=== PATIENT | female | born 1955 | race Caucasian/White ===

== ENCOUNTER 2024-04-30 08:05 | Inpatient (IN) | payer OTHER, SELFPAY ==
[2024-04-14 13:07] LABS: Hematocrit 37.5 % (37.0-47.0); Hemoglobin 12.7 g/dL (12.0-16.0); Mean Corp Hgb Conc. 33.9 g/dL (33.0-37.0); Mean Corpuscular Hgb 31.3 pg (27.0-31.0); Mean Corpuscular Volume 92.4 fL (81.0-99.0); Mean Platelet Volume 11.5 fL (7.4-10.4); Platelet Count 165 10^3/uL (130-400); Red Blood Cell Count 4.06 10^6/uL (4.20-5.40); Red Cell Dist. Width 13.2 % (11.5-14.5); White Blood Cell Count 9.7 10^3/uL (4.8-10.8)
[2024-04-14 13:44] LABS: ALT (SGPT) 20 U/L (0-35); AST (SGOT) 28 U/L (14-36); Albumin 4.5 g/dl (3.5-5.0); Alkaline Phosphatase 83 U/L (38-126); Blood Urea Nitrogen 26 mg/dl (7-17); Calcium 10.6 mg/dl (8.4-10.2); Carbon Dioxide 25 mmol/L (22-30); Chloride 104 mmol/L (98-107); Glucose 88 mg/dl (70-99); Potassium 4.2 mmol/L (3.5-5.1); Sodium 138 mmol/L (135-145); Total Bilirubin 0.5 mg/dl (0.2-1.3); Total Protein 6.6 g/dl (6.3-8.2); eGFR > 60.00
[2024-04-15 09:23] LABS: Glycohemoglobin (HgbA1c) 4.9 % (4.0-5.6)
--- NOTE | 2024-04-15 14:32 | PTCARENOTE ---
Abn Ecg, Dr. Pisano with Anesthesia notified, no further actions requested.
--- NOTE | 2024-04-17 16:25 | VNURNOTE ---
Called patient to determine post op plans, needs and introduce role of [facility] liaison. No answer, left message.
--- NOTE | 2024-04-18 16:18 | VNURNOTE ---
Second attempt to reach patient, no answer, left message.
--- NOTE | 2024-04-21 08:03 | VNURNOTE ---
Patient is scheduled for an elective R SHUBHAM on 04/30/24. Spoke with patient prior to surgery via telephone.
Introduced role of [facility] liaison. Patient reports that she lives alone in a two story home with 2 steps to enter and 5 steps onto the porch. She currently functions independently. She has a rolling walker, toilet seat, cane and grabber. Her
brother will help her to get home after surgery and her daughter will check on her throughout the day during the first week post op. PCP is Dr Keesha Sellers.
Discussed post surgical plans. Plan is for her to return home at discharge. She told this author she has an appointment with outpatient PT at for 05/02.
Plan: [facility] liaison will remain available if discharge plans change after surgery.
[2024-04-30] VITALS (25 sets, daily range): BP systolic 83–127; BP diastolic 41–71; PULSE 87; O2SAT 98; BMI 37.8
[2024-04-30 08:35] LABS: Glucose - Point of Care 103 mg/dl (70-99)
[2024-04-30] MEDS: TYLENOL 650 MG PO ×4 (08:44→23:14)
[2024-04-30] MEDS: CELEBREX 200 MG PO (08:44)
[2024-04-30] MEDS: NORMOSOL-R 1000 IV ×2 (08:45→12:14)
--- NOTE | 2024-04-30 09:38 | W.DS.TRANS ---
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
-
Discharge Instructions:
Sleep Apnea Risk Intermediate
Discharge Diagnosis/Procedures R SHUBHAM Dr. Torres 04/30/24
Diet Diabetic, Carb Controlled
Activity With Walker
Driving Restrictions No driving
Bathing Restrictions OK to Shower
Other Services PT
Instructions:
Stand-Alone Forms: Total Hip/Knee Replacement D/C
Changes to Home Medications: Yes
Discharge Medications:
DC Medications w/original date entered in Sc[facility]
cholecalciferol (vitamin D3) 125 mcg (5,000 unit) tablet 5,000 unit PO DAILY 02/26/15
liothyronine 5 mcg tablet 5 mcg PO DAILY 02/26/15
docusate sodium 100 mg capsule 100 mg PO BID ##0 03/26/15
irbesartan 150 mg tablet 75 mg (1/2 x 150 mg) PO DAILY ##0 03/26/15
levothyroxine 100 mcg tablet 100 mcg PO DAILY ##0 03/26/15
Azo 1 dose PO DAILY 04/24/24
calcium carbonate (Calcium 600) 600 mg PO DAILY 04/24/24
ibuprofen 200 mg tablet 200 - 400 mg PO Q6H PRN pain 04/24/24
magnesium 200 mg tablet 400 mg PO DAILY 04/24/24
mupirocin 2 % topical ointment 1 applic topical BID 04/24/24
pravastatin 20 mg tablet 40 mg PO DAILY 04/24/24
sitagliptin phosphate 100 mg tablet (Januvia) 50 mg PO DAILY 04/24/24
Saccharomyces boulardii 250 mg capsule (Florastor) 250 mg PO BID #1 cap 04/30/24
acetaminophen 325 mg capsule (Tylenol) 650 mg (2 x 325 mg) PO QID #2 caps 04/30/24
aspirin 325 mg tablet 325 mg PO DAILY blood clot prevention #1 tab 04/30/24
cefadroxil 500 mg capsule 500 mg PO BID infection prevention #14 caps 04/30/24
celecoxib 200 mg capsule 200 mg PO DAILY anti-inflammatory #14 caps 04/30/24
dexamethasone 4 mg tablet 4 mg PO BID inflammation #6 tabs 04/30/24
magnesium hydroxide 400 mg/5 mL oral suspension (Milk of Magnesia) 30 ml PO HS PRN Constipation #1 mL 04/30/24
ondansetron 4 mg disintegrating tablet 4 mg PO Q6H PRN n/v #20 tabs 04/30/24
oxycodone 5 mg tablet 5 mg PO Q6H PRN 1 tab moderate pain, 2 tabs severe pain #30 tabs 04/30/24
sennosides 8.6 mg tablet (Senokot) 17.2 mg (2 x 8.6 mg) PO BID laxative #2 tabs 04/30/24
Home Medication Changes
aspirin 325 mg tablet 325 mg PO DAILY blood clot prevention #1 tab 04/30/24
cefadroxil 500 mg capsule 500 mg PO BID infection prevention #14 caps 04/30/24
celecoxib 200 mg capsule 200 mg PO DAILY anti-inflammatory #14 caps 04/30/24
dexamethasone 4 mg tablet 4 mg PO BID inflammation #6 tabs 04/30/24
ondansetron 4 mg disintegrating tablet 4 mg PO Q6H PRN n/v #20 tabs 04/30/24
oxycodone 5 mg tablet 5 mg PO Q6H PRN 1 tab moderate pain, 2 tabs severe pain #30 tabs 04/30/24
Pending Results: No
[2024-04-30 12:05] LABS: Glucose - Point of Care 98 mg/dl (70-99)
[2024-04-30] MEDS: ROXICODONE 5 MG PO ×2 (14:39→22:23)
--- NOTE | 2024-04-30 15:05 | PTCARENOTE ---
1500: Patient arrived to 2S. Full head to toe assessment completed. B/L LE neurovascular assessment completed. Aquacell on R hip clean dry and intact. IVF running per order. Call epstein within reach and bed in lowest position.
[2024-04-30] MEDS: CYTOMEL 5 MICROGRAM PO (15:50)
[2024-04-30 16:55] LABS: Glucose - Point of Care 151 mg/dl (70-99)
[2024-04-30] MEDS: PRAVACHOL 40 MG PO (18:00)
[2024-04-30] MEDS: ASPIRIN 325 MG PO (18:00)
[2024-04-30] MEDS: NOVOLOG FLEXPEN-MODERATE RESISTANCE 1 UNITS SC (18:00)
[2024-04-30] MEDS: ANCEF 5 IV (18:00)
[2024-04-30] MEDS: DILAUDID 0.5 MG IV (18:04)
[2024-04-30] MEDS: SENOKOT 17.2 MG PO (20:44)
[2024-04-30] MEDS: COLACE 100 MG PO (20:44)
[2024-04-30] MEDS: BACTROBAN 2% OINTMENT 1 APPLIC NASAL (20:44)
[2024-04-30] MEDS: TORADOL 15 MG IV (20:45)
[2024-04-30 21:34] LABS: Glucose - Point of Care 120 mg/dl (70-99)
[2024-04-30] MEDS: NEURONTIN 300 MG PO (22:07)
[2024-04-30] MEDS: PEPCID 20 MG PO (22:07)
[2024-05-01] MEDS: ANCEF 5 IV (01:53)
[2024-05-01 03:42] VITALS: BP 100/43
[2024-05-01] MEDS: TYLENOL 650 MG PO ×2 (03:45→08:35)
[2024-05-01] MEDS: SYNTHROID 100 MCG PO (05:35)
[2024-05-01 07:05] VITALS: BP 98/47
[2024-05-01] MEDS: ROXICODONE 10 MG PO (08:34)
[2024-05-01] MEDS: ASPIRIN 325 MG PO (08:35)
[2024-05-01] MEDS: CYTOMEL 5 MICROGRAM PO (08:36)
[2024-05-01] MEDS: MAGNESIUM OXIDE 500 MG PO (08:36)
[2024-05-01] MEDS: MOBIC 15 MG PO (08:36)
[2024-05-01] MEDS: BACTROBAN 2% OINTMENT 1 APPLIC NASAL (08:36)
[2024-05-01] MEDS: SENOKOT 17.2 MG PO (08:36)
[2024-05-01] MEDS: TORADOL 15 MG IV (08:36)
[2024-05-01] MEDS: COLACE 100 MG PO (08:36)
[2024-05-01] MEDS: NOVOLOG FLEXPEN-MODERATE RESISTANCE SC ×2 (08:40→12:25)
[2024-05-01 08:41] LABS: Glucose - Point of Care 103 mg/dl (70-99)
[2024-05-01 10:05] VITALS: BP 108/52; BP 99/45; PULSE 75
--- NOTE | 2024-05-01 10:29 | CM ---
Met with patient at the bedside; initial assessment and case management consult completed
Pharmacy verified: [facility] @ [address] [facility], [place], [place]
Patient reported that she and her 19 yr old granddaughter live in a multilevel home; 8 steps to enter; 14 steps to 2nd floor bedroom and bath; 2nd floor bath has tub w/shower; grab bars, raised toilet seat, shower chair
Has 1st floor set up; plans to sleep on sofa; has a commode
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
DME: Glucometer, RW, Cane, BP Cuff
NO SNF history; no recent home health services
Brother will transport home
Plan: discharge to home with outpatient therapy
[2024-05-01 11:04] VITALS: BP 94/42
--- NOTE | 2024-05-01 11:17 | W.PN.ORTHO ---
Today's Communication / Plan
-
d/c
Assessment
.
Distal Motor Intact: Yes
Dressing:
Clean, dry and intact.
Plan
.
Surgery / Date: Maria Elena Torres 04/30/24
DVT Prophylaxis: Aspirin
Activity:
Out of bed.
PT/OT
Discharge Plan: Home w/ Outpatient PT
Subjective
.
.:
Patient resting comfortably.
Vital Signs and Labs
.
Vital Signs and Labs:
Lab Results
04/14/24 12:30
04/14/24 12:30
Temp Pulse Resp BP Pulse Ox
97.7 F 72 16 98/47 99
05/01/24 07:05 05/01/24 07:05 05/01/24 07:05 05/01/24 08:36 05/01/24 08:00
Non-invasive Hgb result: 11.3
Physical Exam
-
HEENT: No pallor, cyanosis, or jaundice. Throat clear.
NECK: Supple. No JVD.
RESPIRATORY: Lungs clear to auscultation.
CVS: S1, S2 normal. RRR.� No murmur, rub or gallop.
ABDOMEN: Soft, non-tender. No distension. BS+/normal.
EXTREMITIES: strength equal, no calf pain with palpation
ANIME DESIGNER: AOx3. No focal deficits. diagnostic cardiac sonographer grossly intact
[2024-05-01 12:14] LABS: Glucose - Point of Care 134 mg/dl (70-99)
[2024-05-01 13:16] VITALS: BP 113/53
== END 2024-05-01 14:58 | disposition home or self-care (01) | DRG 470 ==
LOC: 2 SOUTH 08:05
PROVIDERS: ADMITTING PHYSICIAN Orthopaedic Surgery; FAMILY PHYSICIAN Student in an Organized Health Care Education/Training Program
PROC: 0SR903A Replacement of Right Hip Joint with Ceramic Synthetic Substitute, Uncemented, Open Approach (ICD-10-PCS; 2024-04-30)
DX: M16.11 Unilateral primary osteoarthritis, right hip (principal)
CPT/HCPCS: 36415; 73502; 80053; 82962; 83036; 85027; 87070; 93005; 97110; 97116; 97163; 97166; 97530; 97535; C1713; C1776

== ENCOUNTER 2024-05-02 05:52 | Outpatient (RCR) | payer OTHER, SELFPAY | END 2024-05-02 23:59 | disposition home or self-care (01) | LOC: RPT 05:52 | PROVIDERS: ATTENDING PHYSICIAN Orthopaedic Surgery | DX: Z47.1 Aftercare following joint replacement surgery (principal); M16.11 Unilateral primary osteoarthritis, right hip; Z96.641 Presence of right artificial hip joint | CPT/HCPCS: 97110; 97162; 97535 ==

== ENCOUNTER 2024-05-29 14:53 | Outpatient (RCR) | payer OTHER, SELFPAY | END 2024-05-29 23:59 | disposition home or self-care (01) | LOC: RPT 14:53 | PROVIDERS: ATTENDING PHYSICIAN Orthopaedic Surgery | DX: M16.11 Unilateral primary osteoarthritis, right hip (principal); Z96.641 Presence of right artificial hip joint; Z73.6 Limitation of activities due to disability | CPT/HCPCS: 97010; 97110; 97112; 97116; 97530; 97535 ==

== ENCOUNTER 2024-06-26 14:49 | Outpatient (RCR) | payer OTHER, SELFPAY | END 2024-07-03 23:59 | disposition home or self-care (01) | LOC: RPT 14:49 | PROVIDERS: ATTENDING PHYSICIAN Orthopaedic Surgery | DX: Z47.1 Aftercare following joint replacement surgery (principal); Z96.641 Presence of right artificial hip joint | CPT/HCPCS: 97010; 97110; 97112; 97530 ==

== ENCOUNTER 2024-08-01 13:55 | Outpatient (RCR) | payer OTHER, SELFPAY | END 2024-08-01 23:59 | disposition home or self-care (01) | LOC: RPT 13:55 | PROVIDERS: ATTENDING PHYSICIAN Orthopaedic Surgery | DX: Z47.1 Aftercare following joint replacement surgery (principal); M16.11 Unilateral primary osteoarthritis, right hip; Z96.641 Presence of right artificial hip joint; Z73.6 Limitation of activities due to disability; R26.89 Other abnormalities of gait and mobility; M62.81 Muscle weakness (generalized); Z96.643 Presence of artificial hip joint, bilateral; Z98.1 Arthrodesis status | CPT/HCPCS: 97010; 97110; 97530 ==

== ENCOUNTER 2024-08-04 06:46 | Emergency (ER) | payer OTHER, SELFPAY ==
[2024-08-04 06:47] VITALS: BP 176/88
--- NOTE | 2024-08-04 07:25 | ED.GENMED ---
History of Present Illness
General
Chief Complaint: Musculo-Skeletal Complaint
Time Seen by Provider: 08/04/24 07:05
History of Present Illness
History of Present Illness:
69-year-old female presents to the emergency department for evaluation of intermittent episodes of right thigh pain that been ongoing since approximately 6 weeks after her right total hip replacement. States the episodes are seemingly random and
unprovoked, they occurred yesterday while walking however also occurred overnight last night while asleep. Pain is severe and crippling for a brief period of time. Has no pain currently. Denies any loss of urinary continence. No fevers or chills
Review of Systems
Review of Systems
Allergies reviewed?: Yes
All Other Systems: ROS reviewed and negative except as documented in HPI and ROS
Phy Exam
Physical Exam
Physical Exam:
GEN: Well appearing, NAD, WDWN
HEENT: Oral mucosa moist, no scleral icterus
Cardiac: Regular rate
Lung: No respiratory distress, no tachypnea
MSK: No gross deformity or injuries. Easily reproduced tenderness to palpation of the right medial thigh along the greater saphenous vein tract. Normal R hip ROM. No lower extremity edema, 2+ dorsalis pedis pulse on the right
Skin: Good color, no pallor or jaundice, no rashes
Neuro: AO x3, moves all extremities freely
Psych: Calm, cooperative
Course
Orders/Labs/Results
Orders:
Orders
08/04/24 07:24
CR Femur - Right Min 2 Vw Urgent
Comment:
Reason For Exam: R thigh pain
Venous Doppler Lwr Ext Rt [US Periph Venous LOWER Ext RT] Urgent
Comment:
Reason For Exam: R thigh pain; recent R SHUBHAM
Vital Signs
Initial and Last Documented VS:
Initial Vital Signs
Temp Pulse Resp BP Pulse Ox
97.8 F 76 20 176/88 98
08/04/24 06:47 08/04/24 06:47 08/04/24 06:47 08/04/24 06:47 08/04/24 06:47
Last Documented Vital Signs
Temp Pulse Resp BP Pulse Ox
97.8 F 58 16 130/68 99
08/04/24 06:47 08/04/24 08:25 08/04/24 08:25 08/04/24 08:25 08/04/24 08:25
MDM/Problems Addressed
MDM/Problems Addressed:
Unclear etiology to patient's pain at this time. Does not appear to be related to the hip joint, x-ray and venous Doppler unremarkable. Pain is readily reproduced on superficial palpation of the medial thigh. Recommend course of NSAIDs if pain
episodes increase and follow-up with her orthopedist. Certainly does not sound to be neurogenic or vascular claudication and there are no signs of arterial compromise on exam
*Critical Care Note
Total Time (30-74mins, 75-104mins- exclusive of procedures): Not Applicable
ED Attending Note
-
Portions of this chart may have been created with voice recognition software.� Occasional wrong word or��sound alike� substitutions may have occurred due to the inherent limitations of voice recognition software.
Discharge Plan
Departure
Patient Disposition: Home (Routine Discharge)
Date of Disposition: 08/04/24
Time of Disposition: 08:35
Patient with high blood pressure during this ER visit?: No
Discharge Problem:
Acute pain of right thigh
Instructions: Muscle spasms (muscle cramps)
Prescriptions:
No Action
liothyronine 5 MCG tablet
5 mcg PO DAILY
cholecalciferol (vitamin D3) 5,000 UNIT tablet
5,000 unit PO DAILY
levothyroxine 100 MCG tablet
100 mcg PO DAILY Qty: 0 0RF
irbesartan 150 MG tablet
75 mg PO DAILY Qty: 0 0RF
Rx Instructions:
hold systolic BP <130
calcium carbonate [Calcium 600] 600 mg calcium (1,500 mg) Tablet
600 mg PO DAILY
ibuprofen 200 mg Tablet
200 - 400 mg PO Q6H PRN (Reason: pain)
magnesium 200 mg Tablet
400 mg PO DAILY
pravastatin 20 MG tablet
40 mg PO DAILY
Januvia 100 MG tablet
50 mg PO DAILY
Azo
1 dose PO DAILY
Rx Instructions:
pt unable to provide the exact dose.
mupirocin 2 % Ointment
1 applic TOPICAL BID
Patient Comments:
BID for 3 days, last dose 04/30 am
aspirin 325 mg tablet
325 mg PO DAILY Qty: 1 0RF
Rx Instructions:
Take with food
celecoxib 200 mg capsule
200 mg PO DAILY Qty: 14 0RF
Rx Instructions:
*take with food
*space out 2 hours from aspirin
cefadroxil 500 mg capsule
500 mg PO BID Qty: 14 0RF
Rx Instructions:
*Take w/ food
*Take w/ probiotic
*POST-OP USE
dexamethasone 4 mg tablet
4 mg PO BID Qty: 6 0RF
Rx Instructions:
take with food
post-op use only
Saccharomyces boulardii [Florastor] 250 mg capsule
250 mg PO BID Qty: 1 0RF
sennosides [Senokot] 8.6 mg tablet
17.2 mg PO BID Qty: 2 0RF
magnesium hydroxide [Milk of Magnesia] 400 mg/5 mL suspension
30 ml PO HS PRN (Reason: Constipation) Qty: 1 0RF
ondansetron [ondansetron] 4 mg tablet,disintegrating
4 mg PO Q6H PRN (Reason: n/v) Qty: 20 0RF
Rx Instructions:
take 1/2h b/f pain med if recurrent nausea
allow to dissolve in mouth w/o water
oxycodone 5 mg tablet
5 mg PO Q6H PRN (Reason: 1 tab moderate pain, 2 tabs severe pain) Qty: 30 0RF
Rx Instructions:
Ongoing therapy
acetaminophen [Tylenol] 325 mg capsule
650 mg PO QID Qty: 2 0RF
docusate sodium 100 MG capsule
100 mg PO BID
Referrals:
Tiny Sellers MD [Family Provider] -
Activity Restrictions/Additional Instructions:
The cause of your symptoms is not clear at this time. If you have increasingly frequent events I would recommend taking 600 mg of ibuprofen every 6-8 hours for 3 to 5 days. Otherwise please follow-up with your orthopedist to discuss this ongoing
pain and whether or not it could be related to your hip surgery
Interventions
Interventions:
*Risk Screen - Suicide Last Done: 08/04/24 06:47
*General Assessment Last Done: 08/04/24 06:59
*Neglect/Abuse Screening Last Done: 08/04/24 06:47
ED- Fall Risk Assessment Last Done: 08/04/24 06:59
*ED COVID-19 Vaccine History Last Done: 08/04/24 06:59
*Nursing Disposition Last Done: 08/04/24 08:36
ED-Musculoskeletal Assessment Last Done: 08/04/24 06:58
Discharge Date and Time
Discharge Date/Time: 08/04/24 08:44
Print Language: [id number]
[2024-08-04 08:25] VITALS: BP 130/68
== END 2024-08-04 08:44 | disposition home or self-care (01) ==
LOC: EMR 06:46
PROVIDERS: EMERGENCY PHYSICIAN Emergency Medicine; FAMILY PHYSICIAN Student in an Organized Health Care Education/Training Program
DX: M79.651 Pain in right thigh (principal); Z96.641 Presence of right artificial hip joint
CPT/HCPCS: 99284; 73552; 93971

== ENCOUNTER 2024-09-02 06:22 | Outpatient (RCR) | payer OTHER, SELFPAY | END 2024-09-02 23:59 | disposition home or self-care (01) | LOC: RPT 06:22 | PROVIDERS: ATTENDING PHYSICIAN Orthopaedic Surgery | DX: Z47.1 Aftercare following joint replacement surgery (principal); Z96.643 Presence of artificial hip joint, bilateral; M16.11 Unilateral primary osteoarthritis, right hip; Z73.6 Limitation of activities due to disability; R26.89 Other abnormalities of gait and mobility; M62.81 Muscle weakness (generalized); Z98.1 Arthrodesis status; Z96.641 Presence of right artificial hip joint | CPT/HCPCS: 97010; 97110; 97112; 97140; 97530 ==

== ENCOUNTER → 2024-09-25 16:31 | Outpatient (REF) | payer OTHER, SELFPAY | LOC: PAVMRI 16:31 | PROVIDERS: ATTENDING PHYSICIAN Orthopaedic Surgery; FAMILY PHYSICIAN Student in an Organized Health Care Education/Training Program | DX: M54.50 Low back pain, unspecified (principal) | CPT/HCPCS: 72148 ==

== ENCOUNTER 2024-10-01 16:08 | Outpatient (RCR) | payer OTHER, SELFPAY | END 2024-10-01 23:59 | disposition home or self-care (01) | LOC: RPT 16:08 | PROVIDERS: ATTENDING PHYSICIAN Orthopaedic Surgery | DX: Z47.1 Aftercare following joint replacement surgery (principal); M16.11 Unilateral primary osteoarthritis, right hip; Z73.6 Limitation of activities due to disability; R26.89 Other abnormalities of gait and mobility; Z98.1 Arthrodesis status; Z96.641 Presence of right artificial hip joint; M62.81 Muscle weakness (generalized); Z96.643 Presence of artificial hip joint, bilateral | CPT/HCPCS: 97110; 97112; 97140; 97530; 97535 ==

== ENCOUNTER 2024-10-22 16:04 | Outpatient (RCR) | payer OTHER, SELFPAY | END 2024-10-22 23:59 | disposition home or self-care (01) | LOC: RPT 16:04 | PROVIDERS: ATTENDING PHYSICIAN Orthopaedic Surgery | DX: Z47.1 Aftercare following joint replacement surgery (principal); M16.11 Unilateral primary osteoarthritis, right hip; R26.89 Other abnormalities of gait and mobility; M62.81 Muscle weakness (generalized); Z96.643 Presence of artificial hip joint, bilateral; Z98.1 Arthrodesis status; Z73.6 Limitation of activities due to disability; Z96.641 Presence of right artificial hip joint | CPT/HCPCS: 97110 ==

== ENCOUNTER → 2025-06-04 09:53 | Outpatient (REF) | payer OTHER, SELFPAY | LOC: EMG 09:53 | PROVIDERS: ATTENDING PHYSICIAN Physical Medicine & Rehabilitation; FAMILY PHYSICIAN Student in an Organized Health Care Education/Training Program | DX: M54.16 Radiculopathy, lumbar region (principal); R20.0 Anesthesia of skin | CPT/HCPCS: 95886; 95911 ==